=== PATIENT | female | born 2000 | race Two or more races ===

== ENCOUNTER 2021-06-29 07:30 | Observation (INO) | payer MEDICAID | END 2021-06-29 11:30 | disposition home or self-care (01) | LOC: LDRP 10:00 | PROVIDERS: ADMIT Obstetrics & Gynecology; ATTEND Obstetrics & Gynecology | DX: O48.0 Post-term pregnancy (principal); O62.9 Abnormality of forces of labor, unspecified; Z3A.40 40 weeks gestation of pregnancy | CPT/HCPCS: 59025; 76818; 81002; 94760; G0378 ==

== ENCOUNTER 2021-07-01 15:20 | Observation (INO) | payer MEDICAID ==
[2021-07-01] MEDS ORDERED: PREN-96 PO (17:12)
== END 2021-07-01 17:18 | disposition home or self-care (01) ==
LOC: LDRP 15:20
PROVIDERS: ADMIT Obstetrics & Gynecology; ATTEND Obstetrics & Gynecology
DX: O48.0 Post-term pregnancy (principal); Z3A.40 40 weeks gestation of pregnancy
CPT/HCPCS: 59025; 76818; 81002; 94760; G0378

== ENCOUNTER 2021-07-02 11:00 | Observation (INO) | payer MEDICAID ==
[~2021-07-02 11:00] MED LIST: PREN-96 PO
== END 2021-07-02 12:04 | disposition home or self-care (01) ==
LOC: LDRP 11:00
PROVIDERS: ADMIT Obstetrics & Gynecology; ATTEND Obstetrics & Gynecology
DX: O26.892 Other specified pregnancy related conditions, second trimester (principal); R10.9 Unspecified abdominal pain; O46.93 Antepartum hemorrhage, unspecified, third trimester; Z3A.40 40 weeks gestation of pregnancy
CPT/HCPCS: 59025; 81002; 94760; G0378

== ENCOUNTER 2021-07-02 22:29 | Observation (INO) | payer MEDICAID ==
[~2021-07-02] VITALS: Ht 160 cm; Wt 74.8 kg
[2021-07-03] MEDS ORDERED: METHYLERGONOVINE MALEATE 0.2 MG/ML AMP IM ONE (07:22)
[2021-07-03] MEDS ORDERED: CARBOPROST TROMETHAMINE 250 MCG/1ML VIAL IM ONE (07:22)
[2021-07-03] MEDS ORDERED: miSOPROStol 100 mcg TAB ONE (07:22)
== END 2021-07-03 01:04 | disposition home or self-care (01) ==
LOC: LDRP 22:29
PROVIDERS: ADMIT Obstetrics & Gynecology; ATTEND Obstetrics & Gynecology
DX: O62.9 Abnormality of forces of labor, unspecified (principal); O26.893 Other specified pregnancy related conditions, third trimester; R60.0 Localized edema; Z3A.40 40 weeks gestation of pregnancy
CPT/HCPCS: 59025; 76818; 81002; 94760; G0378

== ENCOUNTER 2021-07-03 07:55 | Inpatient (IN) | payer MEDICAID ==
[~2021-07-03] VITALS: Ht 50.8 cm; Wt 74.8 kg
[2021-07-03] MEDS ORDERED: PROMETHAZINE HCL 25 MG/ML 1ML IV PRN (09:00)
[2021-07-03] MEDS ORDERED: BUTORPHANOL TARTRATE 2 MG/1 ML VIAL IV PRN ×2 (09:00)
[2021-07-03] MEDS ORDERED: LIDOCAINE 2%HCL (LOCAL ANESTH.) INJ 20ML MDV IJ PRN (09:00)
[2021-07-03 10:42] LABS: Basophils # (auto) 0.1 10 ^3/uL (0-0.2); Basophils % (auto) 0.4 % (0.0-2.0); Eosinophils # (auto) 0 10 ^3/uL (0-0.8); Hematocrit 33.7 % (36.0-46.0); Hemoglobin 11.1 g/dL (12.2-16.2); Lymphocytes # (auto) 1.1 10 ^3/uL (0.4-5.4); Lymphocytes % (auto) 8.5 % (10.0-50.0); Mean Corpuscular Hemoglobin 28.6 pg (28.0-32.0); Mean Corpuscular Hgb Conc. 32.9 g/dL (32.0-36.0); Mean Corpuscular Volume 87.1 fL (80.0-100.0); Monocytes # (auto) 0.8 10 ^3/uL (0-1.3); Monocytes % (auto) 5.9 % (0.0-12.0); Neutrophils % (auto) 85.2 % (37.0-80.0); Nucleated Red Blood Cells % 0.1 %; Red Blood Cells 3.86 10^6/uL (4.0-5.20); White Blood Cell 12.9 10^3/uL (4.4-10.8)
[2021-07-03] MEDS: LACTATED RINGER'S 1,000 ML IV SCH ×3 (10:57→14:52)
[2021-07-03 10:58] LABS: Potassium 3.9 mmol/L (3.5-5.1)
[2021-07-03 11:03] LABS: Amphetamine Screen, Urine NEGATIVE (NEGATIVE); Barbiturate Scree,Urine NEGATIVE (NEGATIVE); Benzodiazephine Screen, Urine NEGATIVE (NEGATIVE); Cannabinoid Screen, Urine NEGATIVE (NEGATIVE); Cocaine Screen, Urine NEGATIVE (NEGATIVE); Opiate Scree,Urine NEGATIVE (NEGATIVE); Phencyclidine Screen, Urine NEGATIVE (NEGATIVE)
[2021-07-03 11:05] LABS: Albumin 2.7 g/dL (3.4-5.0); BUN/Creatinine Ratio 18.4; Bilirubin, Total 0.3 mg/dL (0.2-1.0); Calcium 8.3 mg/dL (8.5-10.1); Total Protein 6.8 g/dL (6.4-8.2)
[2021-07-03 11:11] LABS: INR 0.93 (0.9-1.15); Partial Thromboplastin Time 28.2 sec (23.6-33.0)
[2021-07-03] MEDS ORDERED: NALOXONE HCL 0.4 MG/ML VIAL IV ONE (12:00)
[2021-07-03] MEDS ORDERED: fentaNYL CITRATE 100 MCG/2 ML VL IV ONE (12:00)
[2021-07-03] MEDS ORDERED: ePHEDrine SULFATE 50 MG/ML AMP IV ONE (12:00)
[2021-07-03] MEDS ORDERED: ROPIVACAINE HCL 200 ML EPI SCH (12:00)
[2021-07-03] MEDS ORDERED: LACTATED RINGER'S 1,000 ML IV ONE (12:00)
[2021-07-03] MEDS ORDERED: LIDOCAINE HCL 2 %PF INJ 10ML AMP IJ ONE (12:00)
[2021-07-03] MEDS ORDERED: LACT. RINGERS/OXYTOCIN 20UNITS 500 ML IV ONE ×2 (16:15→16:45)
[2021-07-03] MEDS: WITCH HAZEL-GLYCERIN PAD TOP PRN (17:13)
[2021-07-03] MEDS: DERMOPLAST 60ML BOTTLE TOP PRN (17:14)
[2021-07-03] MEDS: PHISODERM TOP SOLN 240ML BTL TOP PRN (17:14)
[2021-07-03] MEDS ORDERED: ONDANSETRON ODT 4 MG TAB PO PRN (17:45)
[2021-07-03] MEDS ORDERED: ACETAMINOPHEN 325 MG TAB PO PRN (17:45)
[2021-07-03] MEDS ORDERED: IBUPROFEN 800 MG TAB PO SCH (18:00)
[2021-07-03 19:00] VITALS: BP 113/70
[2021-07-03] MEDS: IBUPROFEN 600 MG TAB PO PRN (20:42)
[2021-07-03] MEDS: DOCUSATE SOD 100 MG CAP PO SCH (22:10)
[2021-07-03 23:09] VITALS: BP 117/80
[2021-07-04] VITALS (7 sets, daily range): BP systolic 100–119; BP diastolic 60–72
[2021-07-04 07:06] LABS: RPR Non Reactive (Non Reactive)
[2021-07-04] MEDS: IBUPROFEN 600 MG TAB PO PRN ×2 (11:30→17:35)
[2021-07-04] MEDS: DOCUSATE SOD 100 MG CAP PO SCH (22:02)
[2021-07-05 03:00] VITALS: BP 104/77
[2021-07-05] MEDS: IBUPROFEN 600 MG TAB PO PRN ×2 (03:34→09:42)
[2021-07-05 06:45] VITALS: BP 115/74
[2021-07-05] MEDS ORDERED: IBU600T PO (07:19)
[2021-07-05] MEDS ORDERED: DOCU100C10 PO (07:19)
[2021-07-05 09:20] VITALS: BP 116/64
[2021-07-05] MEDS: DERMOPLAST 60ML BOTTLE TOP PRN (09:41)
[2021-07-05] MEDS: WITCH HAZEL-GLYCERIN PAD TOP PRN (09:41)
[2021-07-05] MEDS: PHISODERM TOP SOLN 240ML BTL TOP PRN (09:41)
== END 2021-07-05 09:50 | disposition home or self-care (01) | DRG 560 ==
LOC: LDRP 07:55 → OBSVTOIN 08:52 → LDRP 08:53
PROVIDERS: ADMIT Obstetrics & Gynecology; ATTEND Obstetrics & Gynecology
PROC: 10E0XZZ Delivery of Products of Conception, External Approach (ICD-10-PCS; principal; 2021-07-03)
PROC: 3E0R3BZ Introduction of Anesthetic Agent into Spinal Canal, Percutaneous Approach (ICD-10-PCS; 2021-07-03)
PROC: 00HU33Z Insertion of Infusion Device into Spinal Canal, Percutaneous Approach (ICD-10-PCS; 2021-07-03)
PROC: 0KQM0ZZ Repair Perineum Muscle, Open Approach (ICD-10-PCS; 2021-07-03)
PROC: 0W8NXZZ Division of Female Perineum, External Approach (ICD-10-PCS; 2021-07-03)
DX: O48.0 Post-term pregnancy (principal); Z37.0 Single live birth; O70.1 Second degree perineal laceration during delivery; Z20.822 Contact with and (suspected) exposure to COVID-19; Z3A.40 40 weeks gestation of pregnancy
CPT/HCPCS: 36415; 59025; 59409; 62282; 76818; 80053; 80307; 81002; 85025; 85610; 85730; 86592; 86850; 86900; 86901; 94760; 96360; 96361; G0378; J2590

== ENCOUNTER 2022-11-13 08:37 | Inpatient (IN) | payer MEDICAID ==
[~2022-11-13] VITALS: Ht 160 cm; Wt 74.8 kg
[~2022-11-13 08:37] MED LIST changes: +DOCU-265 PO; +IBU600T PO
[2022-11-13] MEDS ORDERED: LACT. RINGERS/OXYTOCIN 20UNITS 500 ML IV ONE ×2 (10:45→11:15)
[2022-11-13] MEDS ORDERED: miSOPROStol 100 mcg TAB PR PRN (10:45)
[2022-11-13] MEDS ORDERED: METHYLERGONOVINE MALEATE 0.2 MG/ML AMP IM PRN (10:45)
[2022-11-13] MEDS ORDERED: BUTORPHANOL TARTRATE 2 MG/1 ML VIAL IV PRN ×2 (10:45)
[2022-11-13] MEDS ORDERED: miSOPROStol 100 mcg TAB SL PRN (10:45)
[2022-11-13] MEDS ORDERED: PHISODERM TOP SOLN 240ML BTL TOP PRN (10:45)
[2022-11-13] MEDS ORDERED: CARBOPROST TROMETHAMINE 250 MCG/1ML VIAL IM PRN (10:45)
[2022-11-13] MEDS ORDERED: ONDANSETRON HCL 4 MG/2 ML VIAL IV PRN (10:45)
[2022-11-13] MEDS ORDERED: PROMETHAZINE HCL 25 MG/ML 1ML IV PRN (10:45)
[2022-11-13] MEDS ORDERED: LACTATED RINGER'S 1,000 ML IV SCH (10:45)
[2022-11-13] MEDS ORDERED: LIDOCAINE 2%HCL (LOCAL ANESTH.) INJ 20ML MDV IJ PRN (10:45)
[2022-11-13] MEDS: DERMOPLAST 60ML BOTTLE TOP PRN (10:56)
[2022-11-13] MEDS: WITCH HAZEL-GLYCERIN PAD TOP PRN (10:56)
[2022-11-13 11:29] LABS: Basophils # (auto) 0.1 10 ^3/uL (0-0.2); Basophils % (auto) 0.5 % (0.0-2.0); Eosinophils # (auto) 0 10 ^3/uL (0-0.8); Eosinophils % (auto) 0.1 % (0.0-7.0); Hematocrit 34.4 % (36.0-46.0); Hemoglobin 11.2 g/dL (12.2-16.2); Lymphocytes # (auto) 1.2 10 ^3/uL (0.4-5.4); Lymphocytes % (auto) 10.3 % (10.0-50.0); Mean Corpuscular Hemoglobin 27.9 pg (28.0-32.0); Mean Corpuscular Hgb Conc. 32.4 g/dL (32.0-36.0); Mean Corpuscular Volume 85.8 fL (80.0-100.0); Monocytes # (auto) 0.7 10 ^3/uL (0-1.3); Monocytes % (auto) 6.3 % (0.0-12.0); Neutrophils # (auto) 9.4 10 ^3/uL (1.6-8.6); Neutrophils % (auto) 82.8 % (37.0-80.0); Nucleated Red Blood Cells % 0.2 %; Red Blood Cells 4.01 10^6/uL (4.0-5.20); Red Cell Distribution Width 19.3 % (11.8-14.3); White Blood Cell 11.3 10^3/uL (4.4-10.8)
[2022-11-13 11:48] LABS: Alcohol, Urine < 3.0 mg/dL (0-10); Amphetamine Screen, Urine NEGATIVE (NEGATIVE); Barbiturate Scree,Urine NEGATIVE (NEGATIVE); Benzodiazephine Screen, Urine NEGATIVE (NEGATIVE); Cannabinoid Screen, Urine NEGATIVE (NEGATIVE); Cocaine Screen, Urine NEGATIVE (NEGATIVE); Opiate Scree,Urine NEGATIVE (NEGATIVE); Phencyclidine Screen, Urine NEGATIVE (NEGATIVE)
[2022-11-13 11:48] LABS: Albumin 2.6 g/dL (3.4-5.0); Calcium 8.3 mg/dL (8.5-10.1); Potassium 3.5 mmol/L (3.5-5.1)
[2022-11-13 11:51] LABS: BUN/Creatinine Ratio 18.5 (10.0-20.0); Bilirubin, Total 0.3 mg/dL (0.2-1.0); Total Protein 6.5 g/dL (6.4-8.2); Uric Acid 4.8 mg/dL (2.6-6.0)
[2022-11-13] MEDS ORDERED: ONDANSETRON ODT 4 MG TAB PO PRN (12:00)
[2022-11-13] MEDS ORDERED: ACETAMINOPHEN 325 MG TAB PO PRN (12:00)
[2022-11-13 12:05] LABS: Urine Bacteria NONE SEEN /hpf (None Seen); Urine Blood Negative /uL (Negative); Urine Mucus MANY (None Seen); Urine Specific Gravity 1.034 (1.001-1.035); Urine WBC 156 /hpf (0 - 5); Urine WBC Clumps PRESENT /hpf (None Seen)
[2022-11-13 12:05] LABS: INR 0.93 (0.9-1.15); Partial Thromboplastin Time 27.3 SEC (24.5-34.5)
[2022-11-13 14:20] VITALS: RESP 18
[2022-11-13 15:00] VITALS: BP 107/70; PULSE 82; RESP 17; TEMP 98.2; O2SAT 97
[2022-11-13 19:29] VITALS: BP 100/63; PULSE 82; RESP 16; TEMP 98.4; O2SAT 98
[2022-11-13] MEDS: IBUPROFEN 600 MG TAB PO PRN (21:45)
[2022-11-13] MEDS ORDERED: DIPHENOXYLATE W/ATROPINE 2.5 MG TAB PO SCH (22:00)
[2022-11-13] MEDS ORDERED: DOCUSATE SOD 100 MG CAP PO SCH (22:00)
[2022-11-14 03:15] VITALS: BP 107/76; PULSE 76; RESP 16; TEMP 97.8; O2SAT 98
[2022-11-14 06:17] LABS: Basophils # (auto) 0 10 ^3/uL (0-0.2); Basophils % (auto) 0.4 % (0.0-2.0); Eosinophils # (auto) 0.1 10 ^3/uL (0-0.8); Eosinophils % (auto) 0.9 % (0.0-7.0); Hematocrit 30.5 % (36.0-46.0); Lymphocytes # (auto) 3.1 10 ^3/uL (0.4-5.4); Lymphocytes % (auto) 27.2 % (10.0-50.0); Mean Corpuscular Hemoglobin 28.7 pg (28.0-32.0); Mean Corpuscular Hgb Conc. 32.7 g/dL (32.0-36.0); Mean Corpuscular Volume 87.8 fL (80.0-100.0); Monocytes # (auto) 1.6 10 ^3/uL (0-1.3); Monocytes % (auto) 13.9 % (0.0-12.0); Neutrophils # (auto) 6.6 10 ^3/uL (1.6-8.6); Neutrophils % (auto) 57.6 % (37.0-80.0); Nucleated Red Blood Cells % 0.1 %; Red Blood Cells 3.47 10^6/uL (4.0-5.20); White Blood Cell 11.5 10^3/uL (4.4-10.8)
[2022-11-14 07:15] VITALS: BP 115/64; PULSE 71; RESP 16; TEMP 98.3; O2SAT 100
[2022-11-14] MEDS ORDERED: IBU600T PO (07:59)
[2022-11-14] MEDS ORDERED: ACET-1882 PO (07:59)
[2022-11-14] MEDS ORDERED: PREN-96 PO (07:59)
[2022-11-14] MEDS ORDERED: CARB1TAB65 PO (07:59)
[2022-11-14] MEDS ORDERED: ASCO1TAB27 PO (07:59)
[2022-11-14] MEDS ORDERED: DOCU-265 PO (07:59)
[2022-11-14] MEDS: IBUPROFEN 600 MG TAB PO PRN (09:04)
[2022-11-14 11:00] VITALS: BP 111/71; PULSE 70; RESP 16; TEMP 98.3; O2SAT 97
[2022-11-14] MEDS: WITCH HAZEL-GLYCERIN PAD TOP PRN (15:08)
[2022-11-14] MEDS: DERMOPLAST 60ML BOTTLE TOP PRN (15:08)
[2022-11-14 15:15] VITALS: BP 111/72; PULSE 60; RESP 16; TEMP 98.2; O2SAT 98
[2022-11-16 06:17] LABS: RPR Non Reactive (Non Reactive)
== END 2022-11-14 15:57 | disposition home or self-care (01) | DRG 560 ==
LOC: LDRP 08:37 → OBSVTOIN 10:32 → LDRP 10:33
PROVIDERS: ADMIT Obstetrics & Gynecology; ATTEND Obstetrics & Gynecology
PROC: 10E0XZZ Delivery of Products of Conception, External Approach (ICD-10-PCS; principal; 2022-11-13)
PROC: 0HQ9XZZ Repair Perineum Skin, External Approach (ICD-10-PCS; 2022-11-13)
DX: O70.0 First degree perineal laceration during delivery (principal); Z37.0 Single live birth; R71.0 Precipitous drop in hematocrit; Z3A.39 39 weeks gestation of pregnancy
CPT/HCPCS: 36415; 59025; 59409; 80053; 80307; 81001; 81002; 84550; 85025; 85610; 85730; 86592; 86850; 86900; 86901; 94760; 94762; 96360; 96365; G0378; J2590